=== PATIENT | female | born 1945 | race American Indian/Alaskan Native ===

== ENCOUNTER 2018-02-05 10:42 | Day surgery (SDC) | payer MEDICARE ==
[2018-02-05] MEDS ORDERED: ANCEF/STERILE WATER 2 GM/20 ML IV NR (11:00)
[2018-02-05] MEDS ORDERED: DILAUDID IV ONE (11:25)
[2018-02-05] MEDS ORDERED: VERSED IV ONE (11:25)
[2018-02-05] MEDS ORDERED: DILAUDID IV PRN (11:44)
[2018-02-05] MEDS ORDERED: ZOFRAN IV PRN (11:44)
--- NOTE | 2018-02-05 11:44 | Anesthesia Day of Surgery ---
Anesthesia Day of Surgery - Day of Surgery Patient Examined: Yes Patient H&P Reviewed: Yes Patient is NPO: Yes
--- NOTE | 2018-02-05 11:45 | Anesthesia Consultation ---
Anesthesia Consult and Med Hx Date of service: 02/05/18 - Airway Anesthetic Teeth Evaluation: Good ROM Head & Neck: Adequate Mental/Hyoid Distance: Adequate Mallampati Class: Class II Intubation Access Assessment: Probably Good - Pulmonary Exam CTA: Yes - Cardiac Exam Cardiac Exam: RRR - Pre-Operative Health Status ASA Pre-Surgery Classification: ASA3 Proposed Anesthetic Plan: MAC (GERD controlled, + Anxiety, HTN, Denies Chest Pain, Denies DM)
[2018-02-05] MEDS ORDERED: LACTATED RINGERS 1,000 ML IV SCH (12:00)
[2018-02-05] MEDS ORDERED: PEPCID IV NR (12:00)
[2018-02-05] MEDS ORDERED: XYLOCAINE 2% INFILTRATI ONE ×3 (14:00→14:49)
[2018-02-05] MEDS ORDERED: VERSED ONE (14:22)
[2018-02-05] MEDS ORDERED: SUBLIMAZE ONE (14:22)
[2018-02-05] MEDS ORDERED: MARCAINE 0.5% INFILTRATI ONE ×2 (14:50)
[2018-02-05] MEDS ORDERED: DEPO-Medrol INTRA-ARTI ONE (14:51)
--- NOTE | 2018-02-05 15:31 | Procedure Note ---
Date of procedure: 02/05/18 Pre-op diagnosis: chronic low back pain Post-op diagnosis: same Procedure: Lumbar radiofrequency ablation right L2,3 and 5 Procedure The patient was brought to the OR and placed on the Bobby table prone with a probable place underneath the abdomen to straighten out the lumbar spine next the lumbar spine area was prepped and draped in the usual sterile manner using C -arm fluoroscopy 3 lumbar pain management introducers placed in the area near the superior articular process junctions to the transverse processes AP and lateral views were used to confirm correct placement of the probes. Next motor nerves were checked to ensure that we were not next to a motor branch following this local anesthetic was used to deaden the area followed by radiofrequency ablation of the medial branch of the dorsal rami. This step repeated for each level until we had perform all three spots. At the completion of the third and final ablation the patient was awakened and was taken to postanesthesia recovery in a stable condition, there were no complications Anesthesia: local, other (IV sedation) Surgeon: CATHI MATHEW Estimated blood loss: none Condition: stable Disposition: PACU
[2018-02-05 16:08] VITALS: BP 118/74
--- NOTE | 2018-02-08 07:51 | XRay Report ---
X-RAY SPINE LUMBOSACRAL, 2 VIEWS History: Chronic back pain. Findings: 2 fluoroscopic images of the lumbar spine were obtained during a procedure by Dr. Us. 3 needles have been placed in the vicinity of the right pedicles at levels L3, L4 and L5. Please correlate with the procedural report. Moderate multilevel degenerative disc disease and facet arthropathy are identified. A compression deformity at L1 with approximately 50% loss of height is identified. Impression: Needle placement as described. Lumbar spondylosis. L1 fracture, age-indeterminate.
== END 2018-02-05 16:22 | disposition home or self-care (01) ==
LOC: OR 10:42
PROVIDERS: ATTEND Orthopaedic Surgery
DX: G89.29 Other chronic pain (principal); M47.816 Spondylosis without myelopathy or radiculopathy, lumbar region; M51.36 Other intervertebral disc degeneration, lumbar region; F32.9 Major depressive disorder, single episode, unspecified; I10 Essential (primary) hypertension; K21.9 Gastro-esophageal reflux disease without esophagitis; F17.210 Nicotine dependence, cigarettes, uncomplicated; Z79.82 Long term (current) use of aspirin; Z79.899 Other long term (current) drug therapy; Z90.721 Acquired absence of ovaries, unilateral; Z90.710 Acquired absence of both cervix and uterus; Z98.49 Cataract extraction status, unspecified eye; Z98.890 Other specified postprocedural states
CPT/HCPCS: 36415; 64635; 64636; 72100; 84132; J0690; J1030; J1170; J2250; J3010; J7120